=== PATIENT | female | born 1960 | race Hispanic/Latino ===

== ENCOUNTER → 2019-04-14 | Outpatient (CLI) | payer OTHER | END | disposition home or self-care (01) | LOC: RAH 10:12 | PROVIDERS: ATTEND Family Medicine | DX: Z13.6 Encounter for screening for cardiovascular disorders (principal) | CPT/HCPCS: 75571 ==

== ENCOUNTER 2020-11-14 22:05 | Inpatient (IN) | payer OTHER ==
[2020-11-14] MEDS ORDERED: ASPIRIN 325 MG TABLET ONE (22:09)
[2020-11-14 22:26] LABS: BASOPHILS % (AUTO) 0.3 % (0.0-5.0); EOSINOPHILS % (AUTO) 1.7 % (0.0-8.0); HEMATOCRIT 37.6 % (36-48); MEAN CORPUSCULAR VOLUME 90.8 fL (79-99); MONOCYTES % (AUTO) 7.6 % (3.0-13.0); NEUTROPHILS % (AUTO) 62.2 % (40.0-77.0); PLATELET COUNT (AUTO) 228 K/uL (130-400); RED BLOOD CELL COUNT(AUTO) 4.14 MIL/uL (4.00-5.50); RED CELL DISTRIBUTION WIDTH 12.9 % (11.0-15.5); WHITE BLOOD COUNT (AUTO) 5.8 K/uL (4.8-10.8)
[2020-11-14 22:44] LABS: CREATININE 0.7 mg/dL (0.5-1.5); POTASSIUM 3.4 mmol/L (3.5-5.1)
[2020-11-14 22:49] LABS: ALBUMIN 4.2 g/dL (3.5-5.0); B-TYPE NATRIURETIC PEPTIDE 16 pg/mL (0-100); BILIRUBIN,TOTAL 0.3 mg/dL (0.2-1.0); TOTAL PROTEIN, SERUM 8.8 g/dL (6.0-8.3)
[2020-11-14 22:54] LABS: INR 1.06 (0.85-1.15); PROTHROMBIN TIME 11.5 SEC (9.6-11.6)
[2020-11-14 22:55] LABS: PARTIAL THROMBOPLASTIN TIME 30.5 SEC (26.3-35.5)
[2020-11-14] MEDS ORDERED: NITROGLYCERIN 1GM OINT 1 INCH/1GM TD ONE (23:17)
[2020-11-14] MEDS ORDERED: MORPHINE 2 MG SYG ONE (23:50)
[2020-11-14] MEDS ORDERED: ONDANSETRON 4MG INJ ONE (23:51)
[2020-11-15] VITALS (7 sets, daily range): BP systolic 96–129; BP diastolic 34–62
[2020-11-15] MEDS: METOPROLOL TARTRATE 25 MG TAB PO SCH ×2 (00:30→09:11)
[2020-11-15] MEDS ORDERED: ONDANSETRON 4MG INJ IV PRN (00:30)
[2020-11-15] MEDS ORDERED: MORPHINE 2 MG SYG IV PRN (00:30)
[2020-11-15] MEDS: NITROGLYCERIN 1GM OINT 1 INCH/1GM TD SCH ×4 (00:30→23:42)
[2020-11-15] MEDS ORDERED: ACETAMINOPHEN 325 MG TAB PO PRN (00:30)
[2020-11-15] MEDS ORDERED: METOPROLOL TARTRATE 25 MG TAB ONE (00:53)
[2020-11-15 01:34] LABS: TROPONIN I 3.76 ng/mL (0.00-0.06)
[2020-11-15 01:40] LABS: HEMOGLOBIN A1C 5.5 % (4.0-6.0)
[2020-11-15 04:52] LABS: CHOLESTEROL 190 mg/dL (<200); HDL CHOLESTEROL 149 mg/dL (35-85); LDL DIRECT 127 mg/dL (0-99); TRIGLYCERIDES 66 mg/dL (30-200)
[2020-11-15] MEDS: ACETAMINOPHEN 325 MG TAB PO PRN ×2 (06:30→11:45)
[2020-11-15 08:56] LABS: TROPONIN I 6.64 ng/mL (0.00-0.06)
[2020-11-15] MEDS ORDERED: ASPIRIN 325 MG TABLET PO SCH (09:00)
[2020-11-15] MEDS: FAMOTIDINE 20MG VIAL IV SCH ×2 (09:10→21:00)
[2020-11-15] MEDS: ENOXAPARIN SODIUM 40 MG/0.4 ML SYRINGE SQ SCH (09:57)
[2020-11-15 09:58] LABS: BASOPHILS % (AUTO) 0.5 % (0.0-5.0); EOSINOPHILS % (AUTO) 2.7 % (0.0-8.0); HEMATOCRIT 33.3 % (36-48); LYMPHOCYTES % (AUTO) 19.1 % (21.0-51.0); MEAN CORPUSCULAR HEMOGLOBIN 30.9 pg (27.0-33.0); MEAN CORPUSCULAR HGB CONC 34.2 g/dL (32.0-36.0); MEAN CORPUSCULAR VOLUME 90.2 fL (79-99); MONOCYTES % (AUTO) 9.1 % (3.0-13.0); NEUTROPHILS % (AUTO) 68.4 % (40.0-77.0); PLATELET COUNT (AUTO) 206 K/uL (130-400); RED BLOOD CELL COUNT(AUTO) 3.69 MIL/uL (4.00-5.50); WHITE BLOOD COUNT (AUTO) 5.8 K/uL (4.8-10.8)
[2020-11-15] MEDS ORDERED: HEPARIN 25,000 UNITS/250ML D5W 250 ML IV SCH (10:00)
[2020-11-15 10:04] LABS: INR 1.08 (0.85-1.15); PROTHROMBIN TIME 11.7 SEC (9.6-11.6)
[2020-11-15 10:05] LABS: PARTIAL THROMBOPLASTIN TIME 30.3 SEC (26.3-35.5)
[2020-11-15] MEDS ORDERED: CLOPIDOGREL 300MG TAB PO SCH (11:00)
[2020-11-15] MEDS ORDERED: 0.9% NACL 500ML IV.SOLN 500 ML IV SCH (11:00)
[2020-11-15 11:47] LABS: CREATININE 0.6 mg/dL (0.5-1.5); POTASSIUM 3.5 mmol/L (3.5-5.1)
[2020-11-15] MEDS ORDERED: HEPARIN 10,000 UNIT/10ML (1,000 UNIT/ML) VIAL ONE (14:52)
[2020-11-15] MEDS ORDERED: LIDOCAINE HCL 400MG/20ML VIAL ONE (14:52)
[2020-11-15] MEDS ORDERED: NICARDIPINE 25MG INJ IV ONE (14:52)
[2020-11-15] MEDS ORDERED: FENTANYL CITRATE PF 50 MCG/1 ML 2ML VIAL ONE (14:52)
[2020-11-15] MEDS ORDERED: IOHEXOL-350 50ML VIAL IV ONE (14:52)
[2020-11-15] MEDS ORDERED: MIDAZOLAM HCL 1 MG/ML 2ML VIAL ONE (14:52)
[2020-11-15] MEDS ORDERED: IOHEXOL 350 MG/ML 100ML INFUS..BTL IV ONE (14:52)
[2020-11-15] MEDS ORDERED: NITROGLYCERIN 2 MG VIAL IV ONE (15:46)
[2020-11-15 17:57] LABS: TROPONIN I 7.04 ng/mL (0.00-0.06)
[2020-11-15] MEDS: DILTIAZEM 60MG TAB PO SCH ×2 (18:13→22:45)
[2020-11-15] MEDS: 0.9%NACL 1000ML 1,000 ML IV SCH ×2 (18:19→20:05)
[2020-11-15] MEDS: ATORVASTATIN 40 MG TABLET PO SCH (21:00)
[2020-11-16 04:26] VITALS: BP 96/42
[2020-11-16 04:48] LABS: BASOPHILS % (AUTO) 0.4 % (0.0-5.0); EOSINOPHILS % (AUTO) 1.8 % (0.0-8.0); HEMATOCRIT 33.6 % (36-48); LYMPHOCYTES % (AUTO) 12.1 % (21.0-51.0); MEAN CORPUSCULAR HEMOGLOBIN 30.7 pg (27.0-33.0); MEAN CORPUSCULAR HGB CONC 34.2 g/dL (32.0-36.0); MEAN CORPUSCULAR VOLUME 89.8 fL (79-99); MONOCYTES % (AUTO) 5.5 % (3.0-13.0); NEUTROPHILS % (AUTO) 79.8 % (40.0-77.0); PLATELET COUNT (AUTO) 181 K/uL (130-400); RED BLOOD CELL COUNT(AUTO) 3.74 MIL/uL (4.00-5.50); RED CELL DISTRIBUTION WIDTH 12.6 % (11.0-15.5)
[2020-11-16 04:59] LABS: CREATININE 0.6 mg/dL (0.5-1.5); POTASSIUM 3.4 mmol/L (3.5-5.1)
[2020-11-16 05:06] LABS: INR 1.09 (0.85-1.15); PROTHROMBIN TIME 11.8 SEC (9.6-11.6)
[2020-11-16 05:16] VITALS: BP 102/42
[2020-11-16] MEDS: DILTIAZEM 60MG TAB PO SCH ×2 (05:34→10:45)
[2020-11-16 08:00] VITALS: BP 94/40
[2020-11-16] MEDS: NITROGLYCERIN 1GM OINT 1 INCH/1GM TD SCH ×2 (08:30→16:30)
[2020-11-16] MEDS ORDERED: ASPIRIN 81MG CHEW TAB ONE (08:42)
[2020-11-16] MEDS ORDERED: ASPIRIN 325 MG TABLET PO SCH (09:00)
[2020-11-16] MEDS ORDERED: CLOPIDOGREL 75MG TAB PO SCH (09:00)
[2020-11-16] MEDS: ENOXAPARIN SODIUM 40 MG/0.4 ML SYRINGE SQ SCH (09:13)
[2020-11-16] MEDS: FAMOTIDINE 20MG VIAL IV SCH ×2 (09:14→21:14)
[2020-11-16] MEDS ORDERED: LACTULOSE 20 GM/30 ML UDCUP ONE (10:04)
[2020-11-16] MEDS ORDERED: LACTULOSE 20 GM/30 ML UDCUP PO SCH (10:30)
[2020-11-16 12:00] VITALS: BP 106/45
[2020-11-16] MEDS ORDERED: BISACODYL 10 MG SUPP.RECT RC SCH (12:00)
[2020-11-16 16:00] VITALS: BP 113/41
[2020-11-16] MEDS ORDERED: HEMORRHOIDAL OINTMENT 57 GM CREAM.GM. RC PRN (16:30)
[2020-11-16] MEDS ORDERED: PERFLUTREN PROTEIN-A MICROSPHR 0.22 MG/ML VIAL IV ONE (16:30)
[2020-11-16 20:39] VITALS: BP 145/59
[2020-11-16] MEDS: ATORVASTATIN 40 MG TABLET PO SCH (21:14)
[2020-11-17] MEDS: NITROGLYCERIN 1GM OINT 1 INCH/1GM TD SCH ×2 (00:30→08:30)
[2020-11-17 03:59] VITALS: BP 113/52
[2020-11-17 07:40] VITALS: BP 128/49
[2020-11-17] MEDS ORDERED: DILT120C89 PO (08:38)
[2020-11-17] MEDS ORDERED: ASPI-1197 PO (08:39)
[2020-11-17] MEDS: ENOXAPARIN SODIUM 40 MG/0.4 ML SYRINGE SQ SCH (09:00)
[2020-11-17] MEDS: FAMOTIDINE 20MG VIAL IV SCH (09:00)
[2020-11-17] MEDS ORDERED: DILTIAZEM 120MG SR CAP PO SCH (09:00)
[2020-11-17] MEDS ORDERED: DILTIAZEM 60MG TAB PO SCH (09:00)
[2020-11-17] MEDS ORDERED: HYDROCORTISONE 25 MG SUPPOSITORY PR SCH (09:00)
[2020-11-17] MEDS ORDERED: ASPIRIN 81MG CHEW TAB PO SCH (09:15)
== END 2020-11-17 11:43 | disposition home or self-care (01) | DRG 282 ==
LOC: EDH 22:05 → EDHIP 11-15 00:17 → 4DH 11-15 02:10
PROVIDERS: ADMIT Internal Medicine; ATTEND Internal Medicine
PROC: 4A023N7 Measurement of Cardiac Sampling and Pressure, Left Heart, Percutaneous Approach (ICD-10-PCS; principal; 2020-11-15)
PROC: B2111ZZ Fluoroscopy of Multiple Coronary Arteries using Low Osmolar Contrast (ICD-10-PCS; 2020-11-15)
PROC: B2151ZZ Fluoroscopy of Left Heart using Low Osmolar Contrast (ICD-10-PCS; 2020-11-15)
DX: I21.4 Non-ST elevation (NSTEMI) myocardial infarction (principal); I10 Essential (primary) hypertension; K59.00 Constipation, unspecified; I20.1 Angina pectoris with documented spasm; K64.9 Unspecified hemorrhoids; Z80.7 Family history of other malignant neoplasms of lymphoid, hematopoietic and related tissues; Z82.49 Family history of ischemic heart disease and other diseases of the circulatory system
CPT/HCPCS: 36415; 71045; 80048; 80053; 80061; 82550; 83036; 83874; 83880; 84145; 84484; 85025; 85347; 85378; 85610; 85651; 85730; 86140; 93005; 93356; 93458; 99156; 99157; C1769; C8929; G0378; J1644; J1650; J2250; J2405; J3010; J3490; Q9967